=== PATIENT | female | born 1965 | race Caucasian/White ===

== ENCOUNTER 2019-07-24 09:22 | Day surgery (SDC) | payer OTHER ==
[~2019-07-24] VITALS: Ht 165.1 cm; Wt 80.1 kg
[~2019-07-24 09:22] MED LIST: ATORVASTATIN; METFORMIN; VITAMINS
[2019-07-24 10:15] VITALS: Ht 165.1 cm; Wt 80.1 kg
[2019-07-24 10:31] VITALS: BP 142/72; PULSE 96; RESP 18
[2019-07-24] MEDS ORDERED: MIDAZOLAM 1 MG/ML 2 ML INJ ONE ×2 (11:23)
[2019-07-24] MEDS ORDERED: FENTAnyl 50 MCG/ML VIAL ONE (11:23)
[2019-07-24 11:35] VITALS: BP 135/69; PULSE 74; RESP 18
== END 2019-07-24 14:17 | disposition home or self-care (01) ==
LOC: GIL 09:22
PROVIDERS: ATTEND Internal Medicine Gastroenterology
DX: Z12.11 Encounter for screening for malignant neoplasm of colon (principal); K64.8 Other hemorrhoids; E11.9 Type 2 diabetes mellitus without complications
CPT/HCPCS: 45378; 82962; J2250; J3010